=== PATIENT | male | born 1965 | race Caucasian/White ===

== ENCOUNTER 2025-09-24 01:38 | Emergency (ER) | payer OTHER, SELFPAY ==
[2025-09-24] VITALS (16 sets, daily range): BP systolic 98–150; BP diastolic 61–104; BMI 30.3
[2025-09-24 02:11] LABS: Hematocrit 46.6 % (39.0-52.0); Hemoglobin 15.9 g/dL (13.0-18.0); Mean Corp Hgb Conc. 34.1 g/dL (33.0-37.0); Mean Corpuscular Volume 88.9 fL (80.0-94.0); Nucleated Red Blood Cells % 0 % (-); Platelet Count 271 10^3/uL (130-400); Red Cell Dist. Width 11.9 % (11.5-14.5)
[2025-09-24 02:21] LABS: INR 1.18; PT 15.2 Sec (11.4-14.6)
[2025-09-24 02:33] LABS: ALT (SGPT) 36 U/L (0-50); AST (SGOT) 32 U/L (17-59); Albumin 4.5 g/dl (3.5-5.0); Alkaline Phosphatase 61 U/L (38-126); Blood Urea Nitrogen 21 mg/dl (9-20); Calcium 9.4 mg/dl (8.4-10.2); Carbon Dioxide 29 mmol/L (22-30); Chloride 102 mmol/L (98-107); Glucose 107 mg/dl (70-99); Potassium 4.1 mmol/L (3.5-5.1); Sodium 139 mmol/L (135-145); Total Protein 7.9 g/dl (6.3-8.2); eGFR > 60.00
[2025-09-24 02:46] LABS: Troponin I < 0.012 ng/ml
--- NOTE | 2025-09-24 04:04 | ED.GENMED ---
History of Present Illness
General
Chief Complaint: Heart Rate Problem
Source: patient
Time Seen by Provider: 09/24/25 03:53
History of Present Illness
History of Present Illness:
60-year-old male presents to the emergency room complaining of rapid and irregular heartbeat. He feels like he is in A-fib. Patient states he went to bed about 1130 and shortly after getting in bed he began feeling irregular heartbeat. He has had
a couple episodes of A-fib in the past. He is very sensitive to when his heart is beating irregularly. Patient does take metoprolol and Plavix. He has had an UT in the past. He did not have a stent as it was a small distal branch lesion.
Patient's industrial sales representative is Dr. Barbour.
Past History
Past History
ED Past Medical History: Arrthythmia, HTN, Hypercholesterolemia and UT
ED Past Surgical History: Cardiac
Social History
Personal:
Living: with family
Employment: Employed
Phy Exam
Physical Exam
Physical Exam:
General: Awake, Alert, Oriented X3. No acute distress.
Vitals: Tachycardic
Head: Atraumatic
Eyes: Pupils equal, EOMI
Throat: Airway intact, no exudates
Neck: Trachea midline
Lungs: Clear and equal b/l
Heart: Tachycardic, irregular rate, no murmurs
Abd: Soft, Nontender, No pulsatile mass
Rectal:
Neuro: Cranial nerves intact, muscle strength equal bilaterally, cerebellar exam normal
Skin: Warm, dry, no rash
Extremities: pulses equal b/l, no edema
Scores
[id number] Score for Afib Stroke Risk
Age in Years (65=0, 65-74=1, >/=75=2): <65
Sex (Female=+1): Male
Congestive Heart Failure History (Yes=+1): No
Hypertension History (Yes=+1): No
Stroke/TIA/Thromboembolism History (Yes=+2): No
Vascular Disease History (Yes=+1): No
Diabetes Mellitus (Yes=+1): No
Score: 0
Anticoagulation Recommendations: Anticoagulation not indicated (as validated in nonvalvular afib). Consider anticoagulation irrespective of score in patients with HCM
Course
Orders/Labs/Results
Orders:
Orders
09/24/25 01:41
ECG [Electrocardiogram (*1)] Urgent
Reason for Study: Tachycardia
09/24/25 01:43
EKG- Treatment ONCE
09/24/25 01:52
Cardiac Monitoring- Treatment ONCE
IV Insert/Care/Rem.- Treatment PRN
O2 Therapy [RESP] Urgent
Titrate/Wean O2 to maintain O2 sat greater than (%): 90
Special Instructions: Maintain sats >/=90%
Pulse Ox/spot Check [RESP] Urgent
Quantity: 1
Special Instructions: ON ROOM AIR
09/24/25 01:57
Complete Blood Count/With Diff Urgent
Comprehensive Metabolic Panel Urgent
Prothrombin Time Urgent
Troponin I Urgent
09/24/25 04:03
Diltiazem 125 mg/125 ml Nss [Cardizem] 125 mg in 125 ml IV NOW
Initial dose in mg/hr, then titrate:: 5
Titrate to keep:: Heart rate 80-100 bpm
Titrate by mg/hr:: 5 mg/hr
Frequency of titrations (minutes):: 15
Maximum dose in mg/hr:: 15
Diltiazem HCl [Cardizem] 20 mg IV NOW STA
09/24/25 05:26
Propofol 1,000,000 Mcg/100 ml [Diprivan] 1,000,000 mcg in 100 ml .ROUTE .STK-MED
09/24/25 05:27
Propofol [Diprivan] 20 ml .ROUTE .STK-MED
09/24/25 05:39
EKG [Electrocardiogram (*1)] Urgent
Reason for Study: Other
Other Reason for Exam: post cardioversion
EKG- Treatment ONCE
09/24/25 06:06
Apixaban [Eliquis] 5 mg PO NOW STA
Abnormal Lab Results
09/24/25
01:57
Absolute Lymphs (auto) 3.5 H 10^3/uL
(1.2-3.4)
Absolute Monos (auto) 0.9 H 10^3/uL
(0.1-0.6)
Neutrophils % 38.4 L %
(42.2-75.2)
Monocytes % 11.2 H %
(1.7-9.3)
PT 15.2 H Sec
(11.4-14.6)
BUN 21 H mg/dl
(9-20)
Glucose 107 H mg/dl
(70-99)
09/24/25 01:57
09/24/25 01:57
Vital Signs
Initial and Last Documented VS:
Initial Vital Signs
Temp Pulse Resp BP Pulse Ox
97.8 F 112 20 140/90 98
09/24/25 01:50 09/24/25 01:50 09/24/25 01:50 09/24/25 01:50 09/24/25 01:50
Last Documented Vital Signs
Temp Pulse Resp BP Pulse Ox
97.7 F 48 11 101/63 95
09/24/25 06:18 09/24/25 06:18 09/24/25 06:18 09/24/25 06:18 09/24/25 06:18
Procedures
Cardioversion
Indication:: Afib
Synchronized?: Yes
Energy Used: 200 joules
Number of attempts: 1
Successful?: Yes
ASA Risk Score: Class II
Any reaction or bad outcome to prior sedation/anesthesia?: No history of a reaction
Sedation level to be attained: moderate
Chart and allergies reviewed: Yes
Patient reassessed prior to sedation: No
Time out completed at (validating right patient & procedure): 05:36
History of difficult intubation: No
Airway free of obstruction: Yes
Patient has a gag reflex: Yes
Patient is able to open mouth: Yes
Patient has no dentures: Yes
Patient has no loose teeth: Yes
Medication administered by Provider during Moderate Sedation: IV Propofol (mg)
Total dose administered: 80
Time drug administered: 05:37
Start Time: 05:37
Stop Time: 05:47
MDM/Problems Addressed
Differential Diagnosis Includes:
Paroxysmal atrial fibrillation, frequent PACs, sinus tachycardia
MDM/Problems Addressed:
Patient presents with irregular heartbeat that is rapid. He is found to be in A-fib. We initially slowed his rate with IV Cardizem hoping he would then spontaneously convert. Unfortunately has not converted to sinus rhythm. We therefore
proceeded to cardioversion. Patient has not taken anticoagulation but he has a [id number] score of 0 and he is quite aware of when he is in A-fib. He states he notices it because he feels the palpitations but also feels quite fatigued and short
of breath when he is working or doing anything physical if he is in A-fib. He has not felt anything like that recently until of course this morning when he went in A-fib. Will discharge the patient on 1 months worth of Eliquis. Patient will
follow-up with Dr. Biju Barbour
Post cardioversion EKG shows sinus bradycardia at 56. No ischemic changes. Normal intervals.
*Pulse Oximetry
SaO2: 96
Oxygen Mode of Delivery: Room air
Patient hypoxic: no
*EKG
Interpreted by ED Provider?: Yes
Heart Rate: 117
Rate: tachycardiac
Rhythm: a-fib
[place]: normal axis
Interval: normal interval
QRS Pattern: normal QRS
Ischemia: no ischemia
*Marine Cargo Specialist Interpretation
Rate: tachycardiac
Interpretation: abnormal
Heart Rate: 117
Rhythm: a-fib
*Critical Care Note
Total Time (30-74mins, 75-104mins- exclusive of procedures): Not Applicable
Patient Management
Social determinants of health affecting care: Strong social support
ED Attending Note
-
Portions of this chart may have been created with voice recognition software.� Occasional wrong word or��sound alike� substitutions may have occurred due to the inherent limitations of voice recognition software.
Discharge Plan
Departure
Patient Disposition: Home (Routine Discharge)
Date of Disposition: 09/24/25
Time of Disposition: 06:09
Patient with high blood pressure during this ER visit?: No
Condition: Good
Discharge Problem:
Atrial fibrillation
Instructions: Atrial Fibrillation (DC), Sedation for procedures in adults - ED (DC)
Prescriptions:
New
Eliquis 5 mg tablet
5 mg PO BID Qty: 60 0RF
No Action
clopidogrel 75 MG tablet
75 mg PO DAILY
metoprolol tartrate 25 MG tablet
25 mg PO DAILY
Referrals:
Josie Camarillo MD [Family Provider, Internal Medicine]
Activity Restrictions/Additional Instructions:
Because we performed a cardioversion you will need to take Eliquis twice a day for the at least the next 2 weeks. You should hold the clopidogrel while you are taking the Eliquis. You should discuss long-term anticoagulation and went to restart
the Plavix with Dr. Barbour. Return to the emergency room if you feel short of breath, have chest pain or feel like anything is changing.
Interventions
Interventions:
*General Assessment Last Done: 09/24/25 03:07
*Neglect/Abuse Screening Last Done: 09/24/25 01:50
*ED COVID-19 Vaccine History Last Done: 09/24/25 03:07
*ED Influenza Vaccine History Last Done: 09/24/25 03:[address]
[facility] Fall Risk Assessment Tool Last Done: 09/24/25 03:07
*Risk Screen - Suicide (C-SSRS) Last Done: 09/24/25 04:22
*Nursing Disposition Last Done: 09/24/25 06:17
ED- Cardiac Assessment Last Done: 09/24/25 03:07
ED- Pulmonary Assessment Last Done: 09/24/25 03:07
Discharge Date and Time
Discharge Date/Time: 09/24/25 06:26
Print Language: FRISIAN
[2025-09-24] MEDS: CARDIZEM 20 MG IV (04:14)
[2025-09-24] MEDS: CARDIZEM 125 IV (04:19)
[2025-09-24] MEDS: ELIQUIS 5 MG PO (06:14)
== END 2025-09-24 06:26 | disposition home or self-care (01) ==
LOC: EMR 01:38
PROVIDERS: EMERGENCY PHYSICIAN Emergency Medicine; FAMILY PHYSICIAN Family Medicine
DX: I48.91 Unspecified atrial fibrillation (principal); I10 Essential (primary) hypertension; E78.00 Pure hypercholesterolemia, unspecified; I25.2 Old myocardial infarction; Z79.899 Other long term (current) drug therapy; Z79.02 Long term (current) use of antithrombotics/antiplatelets
CPT/HCPCS: 92960; 99152; 96374; 99285; 80053; 84484; 85025; 85610; 93005